=== PATIENT | male | born 1950 | race Two or more races ===

== ENCOUNTER 2020-04-04 12:35 | Inpatient (IN) | payer OTHER ==
[~2020-04-04] VITALS: Ht 165.1 cm; Wt 66.0 kg
[2020-04-04] MEDS ORDERED: ONDANSETRON HCL 4 MG/2 ML VIAL IV ONE (14:45)
[2020-04-04] MEDS ORDERED: SODIUM CHLORIDE 0.9% 1,000 ML IV ONE (14:45)
[2020-04-04 18:51] LABS: Basophils # (auto) 0 10 ^3/uL (0-0.2); Basophils % (auto) 0.4 % (0.0-2.0); Eosinophils # (auto) 0 10 ^3/uL (0-0.8); Eosinophils % (auto) 0.6 % (0.0-7.0); Hematocrit 41.2 % (41.0-53.0); Hemoglobin 13.9 g/dL (13.5-17.5); Lymphocytes # (auto) 0.8 10 ^3/uL (0.4-5.4); Lymphocytes % (auto) 14.2 % (10.0-50.0); Mean Corpuscular Hgb Conc. 33.7 g/dL (32.0-36.0); Mean Corpuscular Volume 85.9 fL (80.0-100.0); Monocytes # (auto) 0.5 10 ^3/uL (0-1.3); Monocytes % (auto) 9.4 % (0.0-12.0); Neutrophils # (auto) 4.3 10 ^3/uL (1.6-8.6); Neutrophils % (auto) 75.4 % (37.0-80.0); Nucleated Red Blood Cells % 0.1 %; Platelet Count (auto) 239 10^3/uL (140-450); Red Blood Cells 4.79 10^6/uL (4.5-5.90); Red Cell Distribution Width 14.1 % (11.8-14.3); White Blood Cell 5.7 10^3/uL (4.4-10.8)
[2020-04-04 19:10] LABS: Albumin 3.3 g/dL (3.4-5.0); BUN/Creatinine Ratio 15.4; Calcium 8.2 mg/dL (8.5-10.1); Magnesium 2.1 mg/dL (1.6-2.6); Potassium 4.1 mmol/L (3.5-5.1)
[2020-04-04 19:17] LABS: Bilirubin, Total 0.3 mg/dL (0.2-1.0); Total Protein 7.4 g/dL (6.4-8.2)
[2020-04-04 19:38] LABS: Amylase 113 U/L (25-115); Lipase 155 U/L (73-393)
[2020-04-05] MEDS ORDERED: DOCUSATE SOD 100 MG CAP PO PRN (05:15)
[2020-04-05] MEDS ORDERED: MORPHINE SULFATE 4 MG/ML SYR/VIAL IV PRN (05:15)
[2020-04-05] MEDS ORDERED: MORPHINE SULF INJ 2 MG/ML SYRINGE 1ML IV PRN (05:15)
[2020-04-05] MEDS ORDERED: ACETAMINOPHEN 325 MG TAB PO PRN (05:15)
[2020-04-05] MEDS ORDERED: NITROGLYCERIN 0.4 MG SL TAB SL PRN (05:15)
[2020-04-05] MEDS ORDERED: ONDANSETRON HCL 4 MG/2 ML VIAL IV PRN (05:15)
[2020-04-05] MEDS ORDERED: HYDROcodone-ACET 5/325MG TAB PO PRN (05:15)
[2020-04-05] MEDS ORDERED: DEXTROSE (50%) 50ML SYRG IV PRN (05:15)
[2020-04-05] MEDS: InsuLIN REG 1unit/0.01ml Soln (100units/ml) SC SCH ×4 (07:00→22:03)
[2020-04-05] MEDS: ACCU-CHEK COMFORT CURVE STRIP VI SCH ×4 (07:00→22:03)
[2020-04-05 07:02] LABS: Basophils # (auto) 0 10 ^3/uL (0-0.2); Basophils % (auto) 0.5 % (0.0-2.0); Eosinophils # (auto) 0 10 ^3/uL (0-0.8); Eosinophils % (auto) 0.7 % (0.0-7.0); Hematocrit 39.5 % (41.0-53.0); Hemoglobin 13.2 g/dL (13.5-17.5); Lymphocytes # (auto) 0.8 10 ^3/uL (0.4-5.4); Lymphocytes % (auto) 15.7 % (10.0-50.0); Mean Corpuscular Hemoglobin 28.6 pg (28.0-32.0); Mean Corpuscular Hgb Conc. 33.5 g/dL (32.0-36.0); Mean Corpuscular Volume 85.5 fL (80.0-100.0); Monocytes # (auto) 0.6 10 ^3/uL (0-1.3); Monocytes % (auto) 13.3 % (0.0-12.0); Neutrophils # (auto) 3.3 10 ^3/uL (1.6-8.6); Neutrophils % (auto) 69.8 % (37.0-80.0); Nucleated Red Blood Cells % 0.1 %; Platelet Count (auto) 224 10^3/uL (140-450); Red Blood Cells 4.62 10^6/uL (4.5-5.90); White Blood Cell 4.8 10^3/uL (4.4-10.8)
[2020-04-05 07:32] LABS: INR 1.03 (0.9-1.15); Partial Thromboplastin Time 27.7 sec (23.0-31.2)
[2020-04-05 07:34] LABS: Calcium 8.1 mg/dL (8.5-10.1); Potassium 4.1 mmol/L (3.5-5.1)
[2020-04-05 07:37] LABS: BUN/Creatinine Ratio 17.3; Bilirubin, Total 0.2 mg/dL (0.2-1.0); Total Protein 7.2 g/dL (6.4-8.2)
[2020-04-05] MEDS: ASCORBIC ACID 500 MG TAB PO SCH ×2 (18:16→22:02)
[2020-04-05] MEDS: FAMOTIDINE 20 MG TAB PO SCH ×2 (18:16→22:02)
[2020-04-05] MEDS: SODIUM CHLOR 0.9% PF (SALINE LOCK) 10ML VIAL/SYR IV SCH ×3 (18:16→20:17)
[2020-04-05] MEDS: ASPirin 81 mg TAB PO SCH (18:16)
[2020-04-05] MEDS: MULTIPLE VITAMIN TAB PO SCH (18:16)
[2020-04-05] MEDS ORDERED: LORazepam 2MG/ML-1ML VIAL IV PRN (20:15)
[2020-04-05] MEDS: ATORVASTATIN 20 MG TAB PO SCH (22:02)
[2020-04-06 04:33] LABS: Urine Bacteria FEW /hpf (None Seen); Urine Blood Negative /uL (Negative); Urine Specific Gravity 1.014 (1.001-1.035); Urine WBC <1 /hpf (0 - 3)
[2020-04-06 04:40] LABS: Alcohol, Urine < 3.0 mg/dL (0-10); Amphetamine Screen, Urine NEGATIVE (NEGATIVE); Barbiturate Scree,Urine NEGATIVE (NEGATIVE); Benzodiazephine Screen, Urine NEGATIVE (NEGATIVE); Cannabinoid Screen, Urine NEGATIVE (NEGATIVE); Cocaine Screen, Urine NEGATIVE (NEGATIVE); Opiate Scree,Urine NEGATIVE (NEGATIVE); Phencyclidine Screen, Urine NEGATIVE (NEGATIVE)
[2020-04-06] MEDS: SODIUM CHLOR 0.9% PF (SALINE LOCK) 10ML VIAL/SYR IV SCH ×3 (05:37→22:11)
[2020-04-06] MEDS: InsuLIN REG 1unit/0.01ml Soln (100units/ml) SC SCH ×4 (06:35→23:50)
[2020-04-06] MEDS: ACCU-CHEK COMFORT CURVE STRIP VI SCH ×4 (06:35→23:49)
[2020-04-06 09:24] LABS: Basophils # (auto) 0 10 ^3/uL (0-0.2); Basophils % (auto) 0.5 % (0.0-2.0); Eosinophils # (auto) 0.1 10 ^3/uL (0-0.8); Eosinophils % (auto) 1.6 % (0.0-7.0); Hematocrit 39.4 % (41.0-53.0); Hemoglobin 13.3 g/dL (13.5-17.5); Lymphocytes # (auto) 1.1 10 ^3/uL (0.4-5.4); Lymphocytes % (auto) 22.2 % (10.0-50.0); Mean Corpuscular Hemoglobin 29.2 pg (28.0-32.0); Mean Corpuscular Hgb Conc. 33.9 g/dL (32.0-36.0); Mean Corpuscular Volume 86.3 fL (80.0-100.0); Monocytes # (auto) 0.5 10 ^3/uL (0-1.3); Monocytes % (auto) 10.5 % (0.0-12.0); Neutrophils # (auto) 3.3 10 ^3/uL (1.6-8.6); Neutrophils % (auto) 65.2 % (37.0-80.0); Platelet Count (auto) 222 10^3/uL (140-450); Red Blood Cells 4.57 10^6/uL (4.5-5.90); Red Cell Distribution Width 13.8 % (11.8-14.3)
[2020-04-06 10:13] LABS: Calcium 8.1 mg/dL (8.5-10.1); Potassium 3.7 mmol/L (3.5-5.1)
[2020-04-06 10:18] LABS: BUN/Creatinine Ratio 17.8; Bilirubin, Total 0.3 mg/dL (0.2-1.0); Total Protein 7.3 g/dL (6.4-8.2)
[2020-04-06 10:27] LABS: Cholesterol 110 mg/dL (< 200); HDL Cholesterol 29 mg/dL (40-59); LDL Cholesterol 75 mg/dL (< 100); Triglycerides 90 mg/dL (< 150)
[2020-04-06] MEDS ORDERED: amLODIPine BESYLATE 5 MG TAB PO ONE (11:45)
[2020-04-06] MEDS: ASPirin 81 mg TAB PO SCH (11:52)
[2020-04-06] MEDS: ASCORBIC ACID 500 MG TAB PO SCH ×2 (11:52→22:12)
[2020-04-06] MEDS: MULTIPLE VITAMIN TAB PO SCH (11:52)
[2020-04-06] MEDS: FAMOTIDINE 20 MG TAB PO SCH ×2 (11:52→22:12)
[2020-04-06] MEDS ORDERED: ENOXAPARIN SOD 40 MG/0.4 ML SYRINGE SC ONE (12:00)
[2020-04-06] MEDS ORDERED: amLODIPine BESYLATE 5 MG TAB ONE (12:30)
[2020-04-06] MEDS: hydrALAZINE HCL 20 MG/ML VL IV PRN (14:11)
[2020-04-06] MEDS ORDERED: FUROSEMIDE 40 MG/4 ML VIAL IV ONE (14:30)
[2020-04-06] MEDS: ATORVASTATIN 20 MG TAB PO SCH (22:12)
[2020-04-06 23:42] VITALS: BP 187/91
[2020-04-06 23:45] VITALS: BP 187/91
[2020-04-07] MEDS: hydrALAZINE HCL 20 MG/ML VL IV PRN ×2 (00:16→06:14)
[2020-04-07 05:00] VITALS: BP 179/78
[2020-04-07] MEDS: SODIUM CHLOR 0.9% PF (SALINE LOCK) 10ML VIAL/SYR IV SCH ×3 (05:14→23:02)
[2020-04-07] MEDS: ACCU-CHEK COMFORT CURVE STRIP VI SCH ×4 (05:15→23:03)
[2020-04-07] MEDS: InsuLIN REG 1unit/0.01ml Soln (100units/ml) SC SCH ×5 (05:16→23:08)
[2020-04-07 06:58] LABS: Albumin 2.9 g/dL (3.4-5.0); Calcium 8.2 mg/dL (8.5-10.1); Potassium 3.4 mmol/L (3.5-5.1)
[2020-04-07 07:01] LABS: BUN/Creatinine Ratio 16.4; Bilirubin, Total 0.3 mg/dL (0.2-1.0)
[2020-04-07 08:00] VITALS: BP 159/72
[2020-04-07] MEDS: ENOXAPARIN SOD 40 MG/0.4 ML SYRINGE SC SCH (09:14)
[2020-04-07] MEDS: ASCORBIC ACID 500 MG TAB PO SCH ×2 (09:14→23:02)
[2020-04-07] MEDS: MULTIPLE VITAMIN TAB PO SCH (09:14)
[2020-04-07] MEDS: CHOLECALCIFEROL (VITD3) 2,000 UNIT CAP PO SCH (09:15)
[2020-04-07] MEDS: ASPirin 81 mg TAB PO SCH (09:15)
[2020-04-07] MEDS: FAMOTIDINE 20 MG TAB PO SCH ×2 (09:16→23:03)
[2020-04-07] MEDS: ZINC SULFATE 220mg CAP or TAB PO SCH (09:16)
[2020-04-07] MEDS: amLODIPine BESYLATE 5 MG TAB PO SCH (09:27)
[2020-04-07] MEDS ORDERED: HYDR-4296 PO (09:33)
[2020-04-07] MEDS ORDERED: CARV3.1240 PO (09:33)
[2020-04-07] MEDS ORDERED: HCTZ25T PO (09:33)
[2020-04-07] MEDS ORDERED: LOVA40TA72 PO (09:33)
[2020-04-07] MEDS ORDERED: METF-371 PO (09:33)
[2020-04-07] MEDS ORDERED: GLIP10TA9 PO (09:33)
[2020-04-07] MEDS ORDERED: LOSA-69 PO (09:33)
[2020-04-07] MEDS ORDERED: LABETALOL HCL 5 MG/ML 4ML SYRINGE IV PRN (10:00)
[2020-04-07] MEDS: CARVEDILOL 3.125 MG TAB PO SCH ×2 (11:21→23:06)
[2020-04-07] MEDS: hydrALAZINE HCL 25 MG TAB PO SCH ×2 (11:21→23:06)
[2020-04-07] MEDS ORDERED: INSULIN LANTUS (GLARGINE) 1 /0.01ml (100units/ml) SC ONE (11:30)
[2020-04-07] MEDS: glipiZIDE 5 MG TAB PO SCH (18:28)
[2020-04-07 22:00] VITALS: BP_SYST 134; BP_SYST 151; BP_SYST 152; BP_DIAS 64; BP_DIAS 68; BP_DIAS 70
[2020-04-07] MEDS: ATORVASTATIN 20 MG TAB PO SCH (23:03)
[2020-04-08] MEDS: SODIUM CHLOR 0.9% PF (SALINE LOCK) 10ML VIAL/SYR IV SCH (05:39)
[2020-04-08] MEDS: InsuLIN REG 1unit/0.01ml Soln (100units/ml) SC SCH ×2 (05:39→12:57)
[2020-04-08] MEDS: ACCU-CHEK COMFORT CURVE STRIP VI SCH ×2 (05:39→12:58)
[2020-04-08] MEDS: glipiZIDE 5 MG TAB PO SCH (05:40)
[2020-04-08 09:00] VITALS: BP 153/80
[2020-04-08] MEDS ORDERED: ASPI81CH43 PO (09:19)
[2020-04-08] MEDS ORDERED: ZINC220T6 PO (09:19)
[2020-04-08] MEDS ORDERED: ASCO500T11 PO (09:19)
[2020-04-08] MEDS ORDERED: AMLO10TA13 PO (09:19)
[2020-04-08] MEDS ORDERED: CHOL1CAP47 PO (09:19)
[2020-04-08] MEDS: ZINC SULFATE 220mg CAP or TAB PO SCH (09:23)
[2020-04-08] MEDS: FAMOTIDINE 20 MG TAB PO SCH (09:24)
[2020-04-08] MEDS: CHOLECALCIFEROL (VITD3) 2,000 UNIT CAP PO SCH (09:24)
[2020-04-08] MEDS: amLODIPine BESYLATE 5 MG TAB PO SCH (09:25)
[2020-04-08] MEDS: MULTIPLE VITAMIN TAB PO SCH (09:26)
[2020-04-08] MEDS: CARVEDILOL 3.125 MG TAB PO SCH (09:26)
[2020-04-08] MEDS: ASCORBIC ACID 500 MG TAB PO SCH (09:26)
[2020-04-08] MEDS: hydrALAZINE HCL 25 MG TAB PO SCH (09:27)
[2020-04-08] MEDS: ENOXAPARIN SOD 40 MG/0.4 ML SYRINGE SC SCH (09:27)
[2020-04-08] MEDS ORDERED: HCTZ 25 MG TAB PO ONE (09:30)
[2020-04-08] MEDS ORDERED: ASPirin 81 mg TAB PO ONE (09:30)
[2020-04-08 12:11] VITALS: BP 139/74
[2020-04-08 13:00] VITALS: BP 139/72
== END 2020-04-08 12:30 | disposition home or self-care (01) | DRG 177 ==
LOC: ER 12:35 → OVERFLOW 12:36 → TELE-WESTW 04-06 23:43
PROVIDERS: ADMIT Nurse Practitioner Family; ATTEND Internal Medicine
DX: U07.1 COVID-19 (principal); N17.0 Acute kidney failure with tubular necrosis; E44.1 Mild protein-calorie malnutrition; E87.1 Hypo-osmolality and hyponatremia; I16.1 Hypertensive emergency; D35.02 Benign neoplasm of left adrenal gland; E11.22 Type 2 diabetes mellitus with diabetic chronic kidney disease; Z68.24 Body mass index [BMI] 24.0-24.9, adult; E78.5 Hyperlipidemia, unspecified; F17.200 Nicotine dependence, unspecified, uncomplicated; I12.9 Hypertensive chronic kidney disease with stage 1 through stage 4 chronic kidney disease, or unspecified chronic kidney disease; I70.8 Atherosclerosis of other arteries; N18.30 Chronic kidney disease, stage 3 unspecified; Z79.82 Long term (current) use of aspirin; Z79.899 Other long term (current) drug therapy; Z82.3 Family history of stroke; Z86.73 Personal history of transient ischemic attack (TIA), and cerebral infarction without residual deficits; W18.39XA Other fall on same level, initial encounter; Y93.89 Activity, other specified; Y92.89 Other specified places as the place of occurrence of the external cause; Y99.8 Other external cause status; I65.29 Occlusion and stenosis of unspecified carotid artery
CPT/HCPCS: 36415; 70450; 71045; 74176; 80053; 80061; 80307; 81001; 82150; 82962; 83036; 83605; 83690; 83735; 84443; 84484; 85025; 85610; 85730; 87426; 93005; 93306; 93886; 97163; 99291; G0378; J1815